=== PATIENT | male | born 1975 | race Caucasian/White ===

== ENCOUNTER 2018-09-04 17:53 | Emergency (ER) | payer SELFPAY ==
[2018-09-04] MEDS ORDERED: HYDROCODONE/ACETAMINOPHEN 5-325 MG TABLET PO ONE (18:24)
--- NOTE | 2018-09-04 18:25 | ER Document Report ---
ED Medical Screen (RME) - General Chief Complaint: Testicular Pain Stated Complaint: TESTICULAR PAIN Time Seen by Provider: 09/04/18 18:23 Notes: I personally and independently obtained patient history and examined the patient in conjunction with the APC and agree with the assessment, treatment plan and disposition of the patient as recorded by the APC, and have reviewed the APC's note. HISTORY OF PRESENT ILLNESS: Patient is a 43-year-old male that presents to the emergency department for chief complaint of left testicle swelling. Patient reports about 9 days ago, he had a vomiting episode, and felt pressure and swelling in his left testicle, that has been present since then. ROS: Constitutional: Negative for fever. Cardiovascular: Negative for chest pain. Respiratory: Negative for shortness of breath. Gastrointestinal: Negative for vomiting or abdominal pain Musculoskeletal: Negative for arm, leg or back pain Skin: Negative for rash. Neurological: Negative for weakness or numbness. Unless otherwise stated in this report the patient's positive and negative responses for review of systems for constitutional, eyes, ENT, cardiovascular, respiratory, gastrointestinal, neurological, genitourinary, musculoskeletal, and integumentary systems and related systems to the presenting problem are either as stated in the HPI or were not pertinent or were negative for the symptoms and/or complaints related to the presenting medical problem. PHYSICAL EXAMINATION: Vital signs reviewed, nursing noted reviewed. GENERAL: Well-appearing, well-nourished and in no acute distress. HEAD: Atraumatic, normocephalic. EYES: Eyes appear normal, conjunctiva are normal. ENT: nares patent, oropharynx clear without exudates. Moist mucous membranes. NECK: Normal range of motion, supple without lymphadenopathy LUNGS: Breath sounds clear to auscultation bilaterally and equal. No wheezes rales or rhonchi. HEART: Regular rate and rhythm without murmurs ABDOMEN: Soft, nontender, normoactive bowel sounds. No rebound, guarding, or rigidity. No masses appreciated. Male genital: There is a palpable hernia in the left scrotum, that is almost completely reducible, but spontaneously returns with gravity, no erythema, ecchymosis. Patient is uncomfortable with reduction of hernia. EXTREMITIES: Nontender, good range of motion, no pitting or edema. NEUROLOGICAL: No focal neurological deficits. Moves all extremities spontaneously Motor and sensory grossly intact on exam. PSYCH: Normal mood, normal affect. SKIN: Warm, Dry, normal turgor, no rashes or lesions noted on exposed MEDICAL DECISION MAKING: Patient case was discussed with the PA, personally evaluated him, recommended have the surgeon evaluate the patient, for possible earlier intervention, as these are at higher risk for strangulation, discussed with the patient to avoid heavy lifting, and to use laxatives if needed if he is prone to being constipated, to avoid significant straining. Please review detail APC documentation. *Note is created using voice recognition software and may contain spelling, syntax or grammatical errors. TRAVEL OUTSIDE OF THE [place] IN LAST 30 DAYS: No - Related Data Allergies/Adverse Reactions: Penicillins Allergy (Verified 09/04/18 17:54) Physical Exam - Vital signs Vitals: Temp Pulse Resp BP Pulse Ox 98.3 F 70 18 126/85 H 99 09/04/18 17:57 09/04/18 17:57 09/04/18 17:57 09/04/18 17:57 09/04/18 17:57 Course - Vital Signs Vital signs: Temp Pulse Resp BP Pulse Ox 97.5 F 68 16 131/76 H 96 09/04/18 20:53 09/04/18 20:53 09/04/18 20:53 09/04/18 20:53 09/04/18 20:53 - Laboratory Result Diagrams: 09/04/18 18:42 09/04/18 18:42 Doctor's Discharge - Discharge Clinical Impression: Left testicular pain, Hydrocele in adult Condition: Stable Disposition: HOME, SELF-CARE Instructions: Family Physicians / Practices Additional Instructions: Hydrocele You have been diagnosed as having a hydrocele. The sac that holds the testicles is called the scrotum. A hydrocele is usually a painless collection of fluid in the membrane that covers the testicle(s). This may be present at or develop later on in life. The cause is usually unknown. In infants a hydrocele can be due to a miscommunication of the fluid surrounding the testes. In adults a hydrocele may form due to injury or inflammation of surrounding structures. Most hydroceles require no treatment, and usually resolve on their own. However, sometimes surgical intervention is recommended for recurrent, or for unusually large hydroceles. The surgery to fix a hydrocele is a minor procedure and usually takes about 1 and 1/2 hours. The surgeon that examined you stated that it looked like either a hydrocele or a hematoma in your left scrotal sac superior to the testicle. He stated that this needed to be followed up with a urologist. I have given you a list of the urologist who come to [place] but none of them are associated with this [facility]. [email or web address] [address] [place], [place] [email or web address] [facility] [address], [place] [facility] [email or web address] [address], [place] Please follow-up with 1 of these urologist for your pain in the left scrotum. I have sent to home with a CD of the ultrasound as well as a written report of the ultrasound. Please take these with you to the urologist. FOLLOW-UP CARE: If you have been referred to a physician for follow-up care, call the physician s office for an appointment as you were instructed or within the next two days. If you experience worsening or a significant change in your symptoms, notify the physician immediately or return to the Emergency Department at any time for re-evaluation. Forms: Elevated Blood Pressure, Special Work Note, Smoking Cessation Education
[2018-09-04 18:53] LABS: ABSOLUTE EOSINOPHILS # (AUTO) 0.3 10^3/uL (0.0-0.6); ABSOLUTE MONOCYTES (AUTO) 0.5 10^3/uL (0.1-1.4); ABSOLUTE NEUT (AUTO) 3.8 10^3/uL (1.7-8.2); BASOPHILS % (AUTO) 0.6 % (0-2); EOSINOPHILS % (AUTO) 5.1 % (0-6); HEMOGLOBIN 15.5 g/dL (13.5-17.0); LYMPHOCYTES % (AUTO) 30.1 % (13-45); MEAN CORPUSCULAR HEMOGLOBIN 30.2 pg (27.0-33.4); MEAN CORPUSCULAR HGB CONC 35.2 g/dL (32.0-36.0); MEAN CORPUSCULAR VOLUME 86 fl (80-97); MONOCYTES % (AUTO) 7.2 % (3-13); PLATELET COUNT 183 10^3/uL (150-450); RED BLOOD COUNT 5.11 10^6/uL (4.35-5.55); RED CELL DISTRIBUTION WIDTH 13.9 % (11.5-14.0); TOTAL CELLS COUNTED % (AUTO) 100 %; WHITE BLOOD COUNT 6.7 10^3/uL (4.0-10.5)
[2018-09-04 19:13] LABS: ALANINE AMINOTRANSFERASE 50 U/L (21-72); ALBUMIN 4.8 g/dL (3.5-5.0); ALKALINE PHOSPHATASE 63 U/L (38-126); ANION GAP 10 (5-19); ASPARTATE AMINO TRANSFERASE 28 U/L (17-59); BILIRUBIN,DIRECT 0.3 mg/dL (0.0-0.4); BILIRUBIN,TOTAL 0.6 mg/dL (0.2-1.3); BLOOD UREA NITROGEN 11 mg/dL (7-20); CALCIUM 9.9 mg/dL (8.4-10.2); CARBON DIOXIDE 28 mmol/L (22-30); CHLORIDE 104 mmol/L (98-107); GLUCOSE 99 mg/dL (75-110); POTASSIUM 4.4 mmol/L (3.6-5.0); SODIUM 142.4 mmol/L (137-145); TOTAL PROTEIN 8.2 g/dL (6.3-8.2)
--- NOTE | 2018-09-04 19:42 | RADIOLOGY REPORT (SQ) ---
EXAM DESCRIPTION: U/S SCROTUM W/DOPPLER COMPLETED DATE/TIME: 09/04/2018 7:17 pm REASON FOR STUDY: left testicle swelling COMPARISON: None. TECHNIQUE: Static and realtime kunz scale imaging of the scrotum and testes. Selected color Doppler and spectral images recorded to document blood flow. LIMITATIONS: None. FINDINGS: RIGHT: TESTICLE: Measures 3.6 x 2.0 x 3.7 cm. Normal echotexture. Normal blood flow. No mass. EPIDIDYMIS: The epididymal head measures 1.0 x 0.9 x 0.8 cm LEFT: TESTICLE: Measures 3.2 x 2.3 x 4.2 cm. Normal echotexture. Normal blood flow. No mass. EPIDIDYMIS: The epididymal head measures 1.3 x 0.8 x 0.8 cm OTHER: There is a mobile cystic structure with internal debris within the scrotal sac superior to the testicles, measuring 3.8 x 4.8 x 2.8 cm. IMPRESSION: 1. No sonographic evidence of testicular mass or torsion. 2. Mobile cystic structure with internal debris within the scrotal sac superior to the testicles, may represent loculated chronic hydrocele versus partial herniation of the urinary bladder. Cross-secti onal imaging can be obtained for further evaluation. TECHNICAL DOCUMENTATION: JOB ID: [id number] All Rights Reserved Reading location - IP/workstation name: [email or web address]
--- NOTE | 2018-09-04 19:45 | ER Document Report ---
ED GI/ - General Chief Complaint: Testicular Pain Stated Complaint: TESTICULAR PAIN Time Seen by Provider: 09/04/18 18:23 Mode of Arrival: Ambulatory Information source: Patient Notes: 43-year-old male presented to ED for complaint of pain to the left testicle with swelling. He states about 9 days ago he ate about a finger the taste wrong. He states about 15 minutes later he got hot flashes head was ringing tunnel vision and wobbly went to the bathroom and had violent vomiting. He states that soon as he vomited he felt like there was burning and pain in his left testicle. He states that the pain has been slowly increased until now it is very painful at times. He states the left testicle is larger at times and not as large at other times. TRAVEL OUTSIDE OF THE [place] IN LAST 30 DAYS: No - HPI Patient complains to provider of: Groin pain, Testicular pain Onset: Other - 9 days Timing/Duration: Gradual Quality of pain: Sharp, Throbbing Severity at maximum: Severe Severity in ED: Moderate Pain Level: 3 Location: Pelvis, Left testicle Associated symptoms: Other - Left testicle pain Exacerbated by: Movement, Walking Relieved by: Denies Similar symptoms previously: No Recently seen / treated by doctor: No - Related Data Allergies/Adverse Reactions: Penicillins Allergy (Verified 09/04/18 17:54) Past Medical History - General Information source: Patient - Social History Smoking Status: Current Every Day Smoker Cigarette use (# per day): Yes - Pack per day Chew tobacco use (# tins/day): No Smoking Education Provided: Yes - 4 minutes Frequency of alcohol use: Rare Drug Abuse: Marijuana Occupation: [employer] Lives with: Family Family History: Reviewed & Not Pertinent Patient has suicidal ideation: No Patient has homicidal ideation: No - Past Medical History Cardiac Medical History: Reports: None Pulmonary Medical History: Reports: None EENT Medical History: Reports: None Neurological Medical History: Reports: None Endocrine Medical History: Reports: None Renal/ Medical History: Reports: None Malignancy Medical History: Reports None GI Medical History: Reports: None Musculoskeletal Medical History: Reports None Skin Medical History: Reports None Psychiatric Medical History: Reports: None Traumatic Medical History: Reports: None Infectious Medical History: Reports: None Past Surgical History: Reports: Hx Oral Surgery - wisdom teeth - Immunizations Immunizations up to date: Yes Review of Systems - Review of Systems Constitutional: No symptoms reported EENT: No symptoms reported Cardiovascular: No symptoms reported Respiratory: No symptoms reported Gastrointestinal: No symptoms reported Genitourinary: No symptoms reported Male Genitourinary: Testicular pain, Other - Fullness to the left groin Musculoskeletal: No symptoms reported Skin: No symptoms reported Hematologic/Lymphatic: No symptoms reported Neurological/Psychological: No symptoms reported -: Yes All other systems reviewed and negative Physical Exam - Vital signs Vitals: Temp Pulse Resp BP Pulse Ox 98.3 F 70 18 126/85 H 99 09/04/18 17:57 09/04/18 17:57 09/04/18 17:57 09/04/18 17:57 09/04/18 17:57 Interpretation: Normal - General General appearance: Appears well, Alert - HEENT Head: Normocephalic, Atraumatic Eyes: Normal Pupils: PERRL - Respiratory Respiratory status: No respiratory distress Chest status: Nontender Breath sounds: Normal Chest palpation: Normal - Cardiovascular Rhythm: Regular Heart sounds: Normal auscultation Murmur: No - Abdominal Inspection: Normal Distension: No distension Bowel sounds: Normal Tenderness: Nontender Organomegaly: No organomegaly - Genitourinary Inspection: Other - Left testicle mildly larger fullness to the left groin Tenderness: Testicle tender Scrotum: Swelling. No: Redness, Hot to touch - Back Back: Normal, Nontender - Extremities General upper extremity: Normal inspection, Nontender, Normal color, Normal ROM , Normal temperature General lower extremity: Normal inspection, Nontender, Normal color, Normal ROM , Normal temperature, Normal weight bearing. No: Hope's sign - Neurological Neuro grossly intact: Yes Cognition: Normal Orientation: AAOx4 Florence Coma Scale Eye Opening: Spontaneous Florence Coma Scale Verbal: Oriented Christian Coma Scale Motor: Obeys Commands Florence Coma Scale Total: 15 Speech: Normal Motor strength normal: LUE, RUE, LLE, RLE Sensory: Normal - Psychological Associated symptoms: Normal affect, Normal mood - Skin Skin Temperature: Warm Skin Moisture: Dry Skin Color: Normal Course - Vital Signs Vital signs: Temp Pulse Resp BP Pulse Ox 97.5 F 68 16 131/76 H 96 09/04/18 20:53 09/04/18 20:53 09/04/18 20:53 09/04/18 20:53 10/27/18 20:53 - Laboratory Result Diagrams: 09/04/18 18:42 09/04/18 18:42 - Diagnostic Test Radiology reviewed: Image reviewed, Reports reviewed - Consults westley Reason for consultation: 09/04/18 20:04 Left inguinal hernia Consulted provider: will come to ER Discharge - Discharge Clinical Impression: Left testicular pain, Hydrocele in adult Condition: Stable Disposition: HOME, SELF-CARE Instructions: Family Physicians / Practices Additional Instructions: Hydrocele You have been diagnosed as having a hydrocele. The sac that holds the testicles is called the scrotum. A hydrocele is usually a painless collection of fluid in the membrane that covers the testicle(s). This may be present at or develop later on in life. The cause is usually unknown. In infants a hydrocele can be due to a miscommunication of the fluid surrounding the testes. In adults a hydrocele may form due to injury or inflammation of surrounding structures. Most hydroceles require no treatment, and usually resolve on their own. However, sometimes surgical intervention is recommended for recurrent, or for unusually large hydroceles. The surgery to fix a hydrocele is a minor procedure and usually takes about 1 and 1/2 hours. The surgeon that examined you stated that it looked like either a hydrocele or a hematoma in your left scrotal sac superior to the testicle. He stated that this needed to be followed up with a urologist. I have given you a list of the urologist who come to [place] but none of them are associated with this [facility]. [email or web address] [address] [email or web address] [facility] [address] [place] [facility] [email or web address] [address] Please follow-up with 1 of these urologist for your pain in the left scrotum. I have sent to home with a CD of the ultrasound as well as a written report of the ultrasound. Please take these with you to the urologist. FOLLOW-UP CARE: If you have been referred to a physician for follow-up care, call the physician s office for an appointment as you were instructed or within the next two days. If you experience worsening or a significant change in your symptoms, notify the physician immediately or return to the Emergency Department at any time for re-evaluation. Forms: Elevated Blood Pressure, Special Work Note, Smoking Cessation Education
--- NOTE | 2018-09-04 20:39 | PDOC CONSULTATION ---
Consultation Consult Date: 09/04/18 Consult reason:: Left testicular pain and swelling History of Present Illness History of Present Illness: JULIUS DUARTE is a 43 year old male seen at the request of the emergency room physician. This is a patient with testicular swelling for the last 2-3 days. He reports that it is exquisitely painful. He noticed it after an episode of vomiting. He denies any trauma to the testicle. Movement and strenuous activity make it worse. Nothing makes it better. He rates his pain as 6 out of 10. His pain does not radiate. He denies any bruising or redness. He denies fevers, chills, chest pain, shortness of breath, abdominal pain, constipation, diarrhea. Past Medical History Cardiac Medical History: Reports: None Pulmonary Medical History: Reports: None EENT Medical History: Reports: None Neurological Medical History: Reports: None Endocrine Medical History: Reports: None Renal/ Medical History: Reports: None Malignancy Medical History: Reports: None GI Medical History: Reports: None Musculoskeltal Medical History: Reports: None Skin Medical History: Reports: None Psychiatric Medical History: Reports: None Traumatic Medical History: Reports: None Infectious Medical History: Reports: None Past Surgical History Past Surgical History: Reports: None Social History Lives with: Family Smoking Status: Current Every Day Smoker Family History Family History: Reviewed & Not Pertinent Parental Family History Reviewed: Yes Children Family History Reviewed: Yes Sibling(s) Family History Reviewed.: Yes Medication/Allergy Home Medications: Sulfamethoxazole/Trimethoprim [Sulfamethoxazole-Tmp Ds Tablet] 2 each PO BID # 40 tablet 09/03/15 Allergies/Adverse Reactions: Penicillins Allergy (Verified 09/04/18 17:54) Review of Systems Constitutional: ABSENT: anorexia, chills, fatigue, fever(s), night sweats, weakness Eyes: ABSENT: visual disturbances Ears: ABSENT: hearing changes Nose, Mouth, and Throat: ABSENT: sore throat Cardiovascular: ABSENT: chest pain Respiratory: ABSENT: cough, dyspnea Gastrointestinal: ABSENT: abdominal pain, constipation, melena, nausea, vomiting Genitourinary: PRESENT: other - Testicular pain and swelling on the left.. ABSENT: difficulty urinating Integumentary: ABSENT: pruritus, rash Neurological: ABSENT: abnormal gait, abnormal movements, confusion, convulsions , dizziness Psychiatric: ABSENT: anxiety, depression Endocrine: ABSENT: cold intolerance, heat intolerance Hematologic/Lymphatic: ABSENT: easy bleeding, easy bruising Physical Exam Vital Signs: Temp Pulse Resp BP Pulse Ox 98.3 F 70 18 126/85 H 99 09/04/18 17:57 09/04/18 17:57 09/04/18 17:57 09/04/18 17:57 09/04/18 17:57 Intake & Output 09/03/18 09/04/18 09/05/18 06:59 06:59 06:59 Weight 78.6 kg General appearance: PRESENT: no acute distress, cooperative Head exam: PRESENT: atraumatic, normocephalic Eye exam: PRESENT: EOMI, PERRLA. ABSENT: scleral icterus Mouth exam: PRESENT: moist, neck supple Teeth exam: PRESENT: poor dentation Neck exam: ABSENT: meningismus, tenderness, thyromegaly, tracheal deviation Respiratory exam: PRESENT: clear to auscultation tiago, unlabored. ABSENT: chest wall tenderness Cardiovascular exam: PRESENT: RRR Pulses: PRESENT: normal radial pulses Vascular exam: PRESENT: normal capillary refill. ABSENT: pallor GI/Abdominal exam: PRESENT: hernia - No sign of left inguinal hernia, soft. ABSENT: distended, firm, guarding, tenderness Rectal exam: PRESENT: deferred Gentrourinary exam: PRESENT: scrotal swelling, other - Tender lesion superior to the left testicle. No inguinal hernia can be palpated on exam. The mass lesion appears to be isolated to the scrotum. Extremities exam: ABSENT: clubbing Neurological exam: PRESENT: alert, awake, oriented to person, oriented to place , oriented to time, oriented to situation, CN II-XII grossly intact Psychiatric exam: ABSENT: agitated, anxious, depressed Focused psych exam: ABSENT: delusional Skin exam: ABSENT: cyanosis, erythema, jaundice Results Laboratory Results: 09/04/18 18:42 09/04/18 18:42 09/04/18 09/04/18 09/04/18 18:42 18:42 18:42 WBC 6.7 RBC 5.11 Hgb 15.5 Hct 44.0 MCV 86 MCH 30.2 MCHC 35.2 RDW 13.9 Plt Count 183 Seg Neutrophils % 57.0 Lymphocytes % 30.1 Monocytes % 7.2 Eosinophils % 5.1 Basophils % 0.6 Absolute Neutrophils 3.8 Absolute Lymphocytes 2.0 Absolute Monocytes 0.5 Absolute Eosinophils 0.3 Absolute Basophils 0.0 Sodium 142.4 Potassium 4.4 Chloride 104 Carbon Dioxide 28 Anion Gap 10 BUN 11 Creatinine 0.94 Est GFR ( Amer) > 60 Est GFR (Non-Af Amer) > 60 Glucose 99 Lactic Acid 1.0 Calcium 9.9 Total Bilirubin 0.6 AST 28 ALT 50 Alkaline Phosphatase 63 Total Protein 8.2 Albumin 4.8 Impressions: Scrotum Ultrasound 09/04/18 18:23 IMPRESSION: 1. No sonographic evidence of testicular mass or torsion. 2. Mobile cystic structure with internal debris within the scrotal sac superior to the testicles, may represent loculated chronic hydrocele versus partial herniation of the urinary bladder. Cross-sectional imaging can be obtained for further evaluation. Assessment & Plan - Diagnosis (1) Left testicular pain Is this a current diagnosis for this admission?: Yes - Plan Summary Plan Summary: This is a 43-year-old male with a soft, tender mass superior to the left testicle. On exam, I cannot identify any inguinal hernias. The mass appears to be isolated to the scrotum. I have reviewed the ultrasound images and reports. The mass is a heterogeneous cystic structure with some solid component. I suspect it could represent a hydrocele or hematoma. The patient denies any testicular trauma. I have recommended evaluation by a urologist. I will see the patient again as needed. Please renotify with questions or concerns.
[2018-09-04 20:55] VITALS: BP 131/76
== END 2018-09-04 20:53 | disposition home or self-care (01) ==
LOC: ER 17:53
DX: N50.812 Left testicular pain (principal); N43.3 Hydrocele, unspecified; R11.10 Vomiting, unspecified; H53.8 Other visual disturbances; F17.210 Nicotine dependence, cigarettes, uncomplicated; Z71.6 Tobacco abuse counseling; Z88.0 Allergy status to penicillin
CPT/HCPCS: 36415; 76870; 80053; 83605; 85025; 93976; 99285; 99406